=== PATIENT | male | born 1985 | race Caucasian/White ===

== ENCOUNTER 2023-08-05 12:22 | Inpatient (IN) | payer OTHER ==
[~2023-08-05] VITALS: Ht 177.8 cm; Wt 85.8 kg
[2023-08-05] MEDS ORDERED: HYDR-4808 PO (12:58)
[2023-08-05] MEDS ORDERED: LACT10SO10 PO (12:58)
[2023-08-05] MEDS ORDERED: DOCU-385 PO (12:58)
[2023-08-05] MEDS ORDERED: FIBERT PO (12:58)
[2023-08-05] MEDS ORDERED: [UNRECOGNIZED DRUG - CODE] PO (12:58)
[2023-08-05] MEDS ORDERED: OLAN5TAB52 PO (12:58)
[2023-08-05] MEDS ORDERED: IBUP-1506 PO (12:58)
[2023-08-05] MEDS ORDERED: SERT-158 PO (12:58)
[2023-08-05] MEDS ORDERED: BUPR1TAB46 SL (12:58)
[2023-08-05] MEDS ORDERED: ACET-2247 PO (13:08)
[2023-08-05 13:11] LABS: ALCOHOL, URINE DRUG SCREEN NEGATIVE (NEGATIVE); AMPHET/METH SCREEN,URINE NEGATIVE (NEGATIVE); BARBITURATE SCREEN, URINE NEGATIVE (NEGATIVE); BENZODIAZEPINES SCREEN,URINE NEGATIVE (NEGATIVE); CANNABINOID SCREEN,URINE NEGATIVE (NEGATIVE); COCAINE SCREEN,URINE NEGATIVE (NEGATIVE); METHADONE SCREEN, URINE NEGATIVE (NEGATIVE); OPIATE SCREEN,URINE NEGATIVE (NEGATIVE); PHENCYCLIDINE SCREEN,URINE NEGATIVE (NEGATIVE)
[2023-08-05] MEDS: SODIUM CHLORIDE 0.9% 1,000 ML IV ONE (13:26)
[2023-08-05 13:31] LABS: BASOPHILS % (AUTO) 0.9 % (0.0-2.0); EOSINOPHILS % (AUTO) 2.4 % (1.0-6.0); HEMATOCRIT 39.3 % (41-53); HEMOGLOBIN 13.3 g/dL (13.5-17.5); LYMPHOCYTES # (AUTO) 1.8 K/uL (1.0-4.8); LYMPHOCYTES % (AUTO) 37.5 % (22.0-44.0); MEAN CORPUSCULAR HEMOGLOBIN 28.1 pg (26.0-34.0); MEAN CORPUSCULAR HGB CONC 33.8 G/dL (31.0-37.0); MEAN CORPUSCULAR VOLUME 83 fL (80-100); MONOCYTES # (AUTO) 0.4 K/uL (0.1-1.0); MONOCYTES % (AUTO) 7.2 % (2.0-9.0); NEUTROPHILS # (AUTO) 2.5 K/uL (1.8-7.7); PLATELET COUNT (AUTO) 199 K/uL (150-450); RED BLOOD CELL COUNT(AUTO) 4.74 MIL/uL (4.50-5.90); RED CELL DISTRIBUTION WIDTH 13.9 % (11.5-14.5); WHITE BLOOD COUNT (AUTO) 4.9 K/uL (4.5-11.0)
[2023-08-05 13:40] LABS: ANION GAP 10 mmol/L (8-16); CALCIUM, TOTAL 9.3 mg/dL (8.8-10.5); CARBON DIOXIDE 28 mmol/L (22-29); CHLORIDE 101 mmol/L (98-107); CREATININE 0.92 mg/dL (0.60-1.30); GLOMERULAR FILTR. RATE CALC > 60 mL/min (>60); GLUCOSE,RANDOM 87 mg/dL (70-110); SODIUM SERUM 139 mmol/L (136-145); UREA NITROGEN, BLOOD 14 mg/dL (7-18)
[2023-08-05 13:43] LABS: ALCOHOL, BLOOD (SERUM) < 3 mg/dL (0-10)
[2023-08-05 13:46] LABS: ACETAMINOPHEN < 2 mcg/mL (10-30); ALANINE AMINOTRANSFERASE 71 U/L (12-78); ALBUMIN 4.2 g/dL (3.4-5.0); ALKALINE PHOSPHATASE 114 U/L (46-116); ASPARTATE AMINOTRANSFERASE 44 U/L (15-37); BILIRUBIN,TOTAL 0.3 mg/dL (0.1-1.0); TOTAL PROTEIN, SERUM 7.6 g/dL (6.4-8.2)
[2023-08-05 13:49] LABS: SALICYLATE 1.6 mg/dL (2.8-20.0)
[2023-08-05 16:53] LABS: COVID AG,FIA SOURCE NASAL SWAB
[2023-08-05 17:16] LABS: SARS-COV2 (COVID) ANTIGEN,FIA Negative (Negative)
[2023-08-05 17:51] LABS: ANION GAP 6 mmol/L (8-16); CALCIUM, TOTAL 8.6 mg/dL (8.8-10.5); CARBON DIOXIDE 28 mmol/L (22-29); CHLORIDE 105 mmol/L (98-107); CREATININE 0.86 mg/dL (0.60-1.30); GLOMERULAR FILTR. RATE CALC > 60 mL/min (>60); GLUCOSE,RANDOM 92 mg/dL (70-110); POTASSIUM 4.3 mmol/L (3.5-5.1); SODIUM SERUM 139 mmol/L (136-145); UREA NITROGEN, BLOOD 14 mg/dL (7-18)
[2023-08-05 17:57] LABS: ALANINE AMINOTRANSFERASE 67 U/L (12-78); ALBUMIN 3.6 g/dL (3.4-5.0); ALKALINE PHOSPHATASE 102 U/L (46-116); ASPARTATE AMINOTRANSFERASE 37 U/L (15-37); BILIRUBIN,TOTAL 0.3 mg/dL (0.1-1.0)
[2023-08-05] MEDS ORDERED: MAGNESIUM HYDROXIDE SUSPENSION 30 ML UDCUP PO PRN (18:45)
[2023-08-05] MEDS ORDERED: ONDANSETRON HCL 4 MG/2 ML VIAL IVP PRN (18:45)
[2023-08-05] MEDS: PANTOPRAZOLE SODIUM 40 MG DR TABLET PO SCH (21:00)
[2023-08-05 21:22] LABS: APPEARANCE,URINE CLEAR (CLEAR); BILIRUBIN,URINE NEGATIVE (NEGATIVE); COLOR,URINE COLORLESS (YELLOW); GLUCOSE, URINE (UA) NEGATIVE (NEGATIVE); KETONES,URINE NEGATIVE (NEGATIVE); LEUKOCYTE ESTERASE ,URINE NEGATIVE (NEGATIVE); NITRATE,URINE NEGATIVE (NEGATIVE); OCCULT BLOOD,URINE NEGATIVE (NEGATIVE); PROTEIN,URINE NEGATIVE (NEGATIVE); UROBILINOGEN,URINE <=1.0 mg/dL (<=1.0)
[2023-08-05 23:19] VITALS: BP 146/94; PULSE 64; RESP 18; TEMP 97.5
[2023-08-06 05:30] VITALS: BP 116/62; PULSE 63; RESP 18; TEMP 97.9
[2023-08-06 07:20] VITALS: BP 109/69; PULSE 58; RESP 18; TEMP 97.7
[2023-08-06 11:28] VITALS: BP 114/70; PULSE 66; RESP 18; TEMP 98.1
[2023-08-06] MEDS: ACETAMINOPHEN 325 MG TABLET PO PRN (13:30)
[2023-08-06 15:24] VITALS: BP 111/61; PULSE 60; RESP 18; TEMP 97.6
[2023-08-06 19:43] VITALS: BP 110/67; PULSE 70; RESP 18; TEMP 98
[2023-08-06 23:56] VITALS: BP 100/60; PULSE 62; RESP 18; TEMP 97.9
[2023-08-07 05:07] VITALS: BP 135/60; PULSE 66; RESP 18; TEMP 98.2
[2023-08-07 08:00] VITALS: BP 123/75; PULSE 71; RESP 18; TEMP 98.4
[2023-08-07 19:29] VITALS: BP 113/71; PULSE 60; RESP 20; TEMP 97.8
[2023-08-08 05:00] VITALS: BP 119/62; PULSE 62; RESP 20; TEMP 97.7
[2023-08-08 08:42] VITALS: BP 122/88; PULSE 65; RESP 18; TEMP 98.6
[2023-08-08] MEDS: SERTRALINE HCL 50 MG TABLET PO SCH (14:34)
[2023-08-08] MEDS: HydrOXYzine PAMOATE 25 MG CAPSULE PO SCH (15:06)
[2023-08-08 15:26] VITALS: BP 118/76; PULSE 68; RESP 19; TEMP 97.9
[2023-08-08] MEDS: OLANZapine 10 MG TABLET PO SCH (20:19)
[2023-08-08] MEDS: DOCUSATE SODIUM 100 MG CAPSULE PO SCH (20:19)
[2023-08-09 07:34] VITALS: BP 108/71; PULSE 60; RESP 18; TEMP 98.3
[2023-08-09] MEDS ORDERED: DOCU-385 PO (12:28)
[2023-08-09] MEDS ORDERED: OLAN10TA74 PO (12:29)
[2023-08-09] MEDS ORDERED: PANT-31 PO (12:29)
[2023-08-09] MEDS ORDERED: HYDR-4808 PO (12:29)
[2023-08-09] MEDS ORDERED: MAGN-169 PO (12:32)
[2023-08-09] MEDS ORDERED: ACET-2247 PO (12:32)
[2023-08-09 15:36] VITALS: BP 121/67; PULSE 78; RESP 18; TEMP 98.4
== END 2023-08-09 19:24 | DRG 918 ==
LOC: EMS 12:23 → AHU 18:29 → 5S 22:22 → 6S 08-07 11:10
PROVIDERS: ADMIT Hospitalist; ATTEND Hospitalist
DX: T39.312A Poisoning by propionic acid derivatives, intentional self-harm, initial encounter (principal); F32.9 Major depressive disorder, single episode, unspecified; F25.1 Schizoaffective disorder, depressive type; F41.1 Generalized anxiety disorder; Z20.822 Contact with and (suspected) exposure to COVID-19; Y92.89 Other specified places as the place of occurrence of the external cause
CPT/HCPCS: 80053; 80307; 81003; 85025; 93005; 99285; G0480; G0481